=== PATIENT | female | born 1990 | race African-American/Black ===

== ENCOUNTER 2019-03-15 19:38 | Emergency (ER) | payer BC, OTHER ==
[~2019-03-15] VITALS: Ht 152.4 cm; Wt 113.4 kg
[2019-03-15] MEDS ORDERED: NOHOMEMEDICATIONS (20:17)
[2019-03-15 20:41] LABS: ABSOLUTE NEUTROPHILS 3.3 thou/uL (1.4-8.2); BASOPHILS 0.3 % (0.0-2.0); HEMOGLOBIN 13.2 gm/dL (12.0-15.0); LYMPHOCYTES 27.1 % (24.0-44.0); MCH 29.7 pg (26.0-34.0); MONOCYTES 7.7 % (1.0-8.0); PLATELET COUNT 292 thou/uL (150-400); POLYS 63.9 % (36.0-66.0); RBC 4.44 mil/uL (4.20-5.00); RDW 14.2 % (10.5-14.5); WBC 5.2 thou/uL (4.0-11.0)
[2019-03-15 20:44] LABS: URINE BILIRUBIN NEGATIVE (Negative); URINE BLOOD 2+ (Negative); URINE CLARITY CLEAR; URINE COLOR YELLOW; URINE GLUCOSE-RANDOM* NEGATIVE (Negative); URINE KETONES NEGATIVE (Negative); URINE LEUKOCYTES-REFLEX NEGATIVE (Negative); URINE NITRITE-REFLEX NEGATIVE (Negative); URINE PROTEIN (DIPSTICK) 1+ (Negative); URINE SPECIFIC GRAVITY >= 1.030 (1.005-1.035); URINE UROBILINOGEN 0.2 E.U./dl (0.2-1.0)
[2019-03-15 20:46] LABS: AMP/METHAMP POSITIVE (Negative); BARBITURATES Negative (Negative); BENZODIAZEPINES Negative (Negative); COCAINE Negative (Negative); METHADONE Negative (Negative); OPIATES Negative (Negative); PCP Negative (Negative)
[2019-03-15 20:49] LABS: ANION GAP 10 mmol/L (7-16); BUN 13 mg/dL (7-18); CALCIUM 10.1 mg/dL (8.5-10.1); CHLORIDE 104 mmol/L (98-107); CO2 25 mmol/L (21-32); CREATININE 1.1 mg/dL (0.6-1.0); GLUCOSE 109 mg/dL (74-106); POTASSIUM 3.4 mmol/L (3.5-5.1); SODIUM 139 mmol/L (136-145)
[2019-03-15 20:55] LABS: ALBUMIN 4.2 g/dL (3.4-5.0); SALICYLATE 4.2 mg/dL (2.8-20.0); SGOT 29 U/L (15-37); SGPT 40 U/L (30-65); TOTAL BILIRUBIN 0.5 mg/dL (<0.1-1.0); TOTAL PROTEIN 8.1 g/dL (6.4-8.2)
[2019-03-15 20:56] LABS: BACTERIA-REFLEX 1-9 Few /HPF (None Seen); CASTS None Seen /LPF (None Seen); CRYSTALS None Seen /LPF (None Seen); SQUAMOUS 4-10 Moderate /LPF (0-3); URINE WBC-REFLEX None Seen /HPF (0-5)
[2019-03-15 20:57] LABS: URINE RBC 0-2 Rare /HPF (0-2)
[2019-03-15 22:30] VITALS: BP 123/77
--- NOTE | 2019-03-17 16:48 | EKG ---
[place] [address] [facility] [place] [address] ELECTROCARDIOGRAM REPORT Name: VIDHI IRIZARRY [id number] Admission: 03/15/19 Attend Phys: Discharge: 03/15/19 Date of : 88 Report #: [id number] THIS REPORT FOR: //name// [facility] ED Test Date: 2019-03-15 Test Time: 20:10:55 Pat Name: VIDHI IRIZARRY Department: Room: Gender: F [employer]visor [place]: [place] : 1990 Requested By: Piter Ross Order Number: [id number] MD: Landry Wong Measurements Intervals [place] Rate: 93 P: 74 [place]: 149 QRS: 18 QRSD: 89 T: 25 QT: 350 QTc: 436 Interpretive Statements Sinus rhythm RSR' in V1 or V2, probably normal variant No previous ECG available for comparison Electronically Signed On 03-17-2019 16:48:07 PHOTOGRAPHIC ENGINEER by Landry Wong [email or web address] <ELECTRONICALLY SIGNED> By: Landry Wong MD, [facility] 03/17/19 1648 09 09 Landry Wong MD, FACC /EPI
== END 2019-03-15 22:55 | disposition home or self-care (01) ==
LOC: ER 19:38
PROVIDERS: Emergency Medicine
DX: S60.511A Abrasion of right hand, initial encounter (principal); S60.512A Abrasion of left hand, initial encounter; F41.9 Anxiety disorder, unspecified; F43.9 Reaction to severe stress, unspecified; R45.851 Suicidal ideations; F17.210 Nicotine dependence, cigarettes, uncomplicated; W22.8XXA Striking against or struck by other objects, initial encounter; Y93.89 Activity, other specified; Y92.009 Unspecified place in unspecified non-institutional (private) residence as the place of occurrence of the external cause; Y99.8 Other external cause status